=== PATIENT | female | born 1975 | race Caucasian/White ===

== ENCOUNTER → 2021-12-13 | Outpatient (CLI) | payer BC ==
[~2021-12-13] MED LIST: NAPROSYN250 MG PO; NORCO 5-325 TA1 EACH PO
== END ==
LOC: KOH-I 12:44
DX: M54.50 Low back pain, unspecified (principal); M51.16 Intervertebral disc disorders with radiculopathy, lumbar region
CPT/HCPCS: 72148

== ENCOUNTER → 2022-03-14 | Outpatient (CLI) | payer BC | LOC: KOH-I 10:28 | DX: M51.16 Intervertebral disc disorders with radiculopathy, lumbar region (principal); M51.17 Intervertebral disc disorders with radiculopathy, lumbosacral region | CPT/HCPCS: 72100 ==